=== PATIENT | male | born 1965 | race African-American/Black ===

== ENCOUNTER 2019-07-23 09:17 | Inpatient (IN) ==
[2019-07-23] MEDS ORDERED: amLODIPine 5 MG TABLET PO STA (11:51)
[2019-07-23 12:31] LABS: Basophils % 0.3 % (0.0-0.8); Eosinophils # 0.1 10*3/uL (0.0-0.87); Eosinophils % 1.9 % (0.00-10.9); Hematocrit 43.1 VOL% (42.0-52.0); Hemoglobin 15.1 GM/DL (14.0-18.0); Immature Granulocytes % 0.1 %; Immature Granulocytes Absolute 0.01 #; Lymphocytes # 2.4 10*3/uL (1.4-4.0); Mean Corpuscular Volume 85.7 FL (87-102); Monocytes % 8.1 % (1.7-12.7); Neutrophils % 54.6 % (38.7-73.9); Platelet Count 300 T/CUMM (130-400); Red Blood Count 5.03 MC/CUMM (3.8-5.5); Red Cell Distribution Width 12.9 % (9.3-17.3); White Blood Count 6.8 T/CUMM (4-12)
[2019-07-23 12:47] LABS: Alanine Aminotransferase 24 U/L (16-61); Albumin 3.7 G/DL (3.4-5.0); Alkaline Phosphatase 73 U/L (45-117); Aspartate Amino Transferase 21 U/L (0-37); Bilirubin,Total < 0.39 MG/DL (0.2-1.0); Blood Urea Nitrogen 22 MG/DL (7-18); Calcium 9.2 MG/DL (8.5-10.1); Estimated Glom Filtration Rate 76 ML/MIN; Glucose 97 MG/DL (74-106); Osmolality,Calculated 275.8 MOS/KG (273-304); Total Protein 7.7 G/DL (6.4-8.3)
[2019-07-23] MEDS ORDERED: ONDANSETRON 4 MG/2 ML VIAL IV PRN (12:50)
[2019-07-23] MEDS ORDERED: DOCUSATE SODIUM 100 MG CAPSULE PO PRN (12:50)
[2019-07-23] MEDS ORDERED: DEXTROSE 50% 25 GM/50 ML VIAL IV PRN (12:50)
[2019-07-23] MEDS ORDERED: hydrALAZINE 20 MG/1 ML VIAL IV PRN (12:50)
[2019-07-23] MEDS ORDERED: ACETAMINOPHEN 325 MG TABLET PO PRN (12:50)
[2019-07-23] MEDS ORDERED: GLUCAGON 1 MG VIAL IM PRN (12:50)
[2019-07-23 13:18] LABS: Risk Ratio 3.19; Thyroid Stimulating Hormone 2.37 uIU/ml (0.358-3.74); VLDL CHOLESTEROL 15.4 MG/DL
[2019-07-23] MEDS: SODIUM CHLORIDE 0.9% 1,000 ML IV SCH (18:36)
[2019-07-23] MEDS ORDERED: METOPROLOL TARTRATE 25 MG TABLET PO SCH (21:00)
[2019-07-24] MEDS: SODIUM CHLORIDE 0.9% 1,000 ML IV SCH ×2 (02:09→12:24)
[2019-07-24 06:24] LABS: Basophils % 0.3 % (0.0-0.8); Eosinophils # 0.2 10*3/uL (0.0-0.87); Eosinophils % 2.7 % (0.00-10.9); Hematocrit 42.4 VOL% (42.0-52.0); Hemoglobin 14.8 GM/DL (14.0-18.0); Immature Granulocytes % 0.1 %; Immature Granulocytes Absolute 0.01 #; Lymphocytes # 2.4 10*3/uL (1.4-4.0); Lymphocytes % 34.3 % (21.2-54.2); Mean Corpuscular HGB Conc 34.9 GM/DL (32-36); Mean Corpuscular Volume 85.3 FL (87-102); Neutrophils % 54.6 % (38.7-73.9); Platelet Count 280 T/CUMM (130-400); Red Blood Count 4.97 MC/CUMM (3.8-5.5); Red Cell Distribution Width 12.7 % (9.3-17.3)
[2019-07-24 06:53] LABS: Osmolality,Calculated 279.5 MOS/KG (273-304)
[2019-07-24] MEDS ORDERED: PANTOPRAZOLE 40 MG TABLET PO SCH (09:00)
[2019-07-24] MEDS ORDERED: hydroCHLOROthiazide 25 MG TABLET PO SCH (09:00)
[2019-07-24] MEDS ORDERED: FUROSEMIDE 40 MG TABLET PO SCH (09:00)
[2019-07-24] MEDS ORDERED: LOSARTAN 50 MG TABLET PO SCH (09:00)
[2019-07-24] MEDS ORDERED: carvediloL 12.5 MG TABLET PO SCH ×2 (09:00→21:00)
[2019-07-24] MEDS ORDERED: amLODIPine 5 MG TABLET PO SCH (09:00)
[2019-07-24] MEDS ORDERED: LACTOBACILLUS ACIDOPHILUS/BULGARICUS CAPLET PO SCH (13:00)
[2019-07-24] MEDS ORDERED: SPIRONOLACTONE 25 MG TABLET PO SCH (14:00)
[2019-07-24] MEDS ORDERED: CLINDAMYCIN INJ 900 MG in PREMIX 1 EACH IV SCH (14:00)
[2019-07-24] MEDS ORDERED: ENOXAPARIN 30 MG/0.3 ML SYRINGE SUBCUT SCH (14:00)
[2019-07-24] MEDS ORDERED: POTASSIUM CHLORIDE 20 MEQ TABLET PO ONE (14:14)
[2019-07-24 16:38] VITALS: BP 114/74
[2019-07-24] MEDS ORDERED: ASCORBIC ACID 500 MG TABLET PO SCH (21:00)
[2019-07-24] MEDS ORDERED: ATORVASTATIN 40 MG TABLET PO SCH (21:00)
[2019-07-25] MEDS ORDERED: POTASSIUM CHLORIDE 20 MEQ TABLET PO SCH (09:00)
[2019-07-25] MEDS ORDERED: ASPIRIN EC 81 MG TABLET PO SCH (09:00)
== END 2019-07-24 17:00 | disposition home or self-care (01) | DRG 814 ==
LOC: N.ED 09:17 → N.EDINP 12:49 → N.3E 15:35
PROVIDERS: ADMIT Internal Medicine; ATTEND Internal Medicine

== ENCOUNTER 2019-07-29 14:01 | Observation (INO) ==
[2019-07-29 14:35] LABS: Basophils % 0.6 % (0.0-0.8); Eosinophils # 0.2 10*3/uL (0.0-0.87); Eosinophils % 3.2 % (0.00-10.9); Hematocrit 45.4 VOL% (42.0-52.0); Hemoglobin 16.4 GM/DL (14.0-18.0); Immature Granulocytes % 0.1 %; Immature Granulocytes Absolute 0.01 #; Lymphocytes # 3.1 10*3/uL (1.4-4.0); Lymphocytes % 42.9 % (21.2-54.2); Mean Corpuscular HGB Conc 36.1 GM/DL (32-36); Mean Corpuscular Volume 83.2 FL (87-102); Mean Platelet Volume 9.9 FL (9.6-12.0); Monocytes % 8.7 % (1.7-12.7); Neutrophils % 44.5 % (38.7-73.9); Platelet Count 289 T/CUMM (130-400); Red Blood Count 5.46 MC/CUMM (3.8-5.5); Red Cell Distribution Width 12.7 % (9.3-17.3); White Blood Count 7.1 T/CUMM (4-12)
[2019-07-29 14:55] LABS: Albumin 3.9 G/DL (3.4-5.0); Bilirubin,Total 0.6 MG/DL (0.2-1.0); Calcium 9.6 MG/DL (8.5-10.1); Osmolality,Calculated 276.8 MOS/KG (273-304); Total Protein 8.2 G/DL (6.4-8.3)
[2019-07-29] MEDS ORDERED: ASPIRIN CHEW 81 MG TABLET PO STA (15:06)
[2019-07-29] MEDS ORDERED: ENOXAPARIN 30 MG/0.3 ML SYRINGE SUBCUT STA (15:10)
[2019-07-29] MEDS ORDERED: ENOXAPARIN 100 MG/ML SYRINGE SUBCUT ONE (15:15)
[2019-07-29] MEDS ORDERED: ACETAMINOPHEN 325 MG TABLET PO PRN (16:45)
[2019-07-29] MEDS ORDERED: NITROGLYCERIN SL 0.4 MG TABLET SL PRN (16:45)
[2019-07-29] MEDS: ATORVASTATIN 40 MG TABLET PO SCH (22:16)
[2019-07-29] MEDS: ASCORBIC ACID 500 MG TABLET PO SCH (22:16)
[2019-07-29] MEDS: carvediloL 6.25 MG TABLET PO SCH (22:16)
[2019-07-29] MEDS: PENICILLIN VK 500 MG TABLET PO SCH (22:22)
[2019-07-30] MEDS: ENOXAPARIN 100 MG/ML SYRINGE SUBCUT SCH ×2 (06:17→18:56)
[2019-07-30 07:26] LABS: Albumin 3.6 G/DL (3.4-5.0); Bilirubin,Total 0.8 MG/DL (0.2-1.0); Calcium 9.1 MG/DL (8.5-10.1); Osmolality,Calculated 273.1 MOS/KG (273-304); Risk Ratio 2.68; Total Protein 7.4 G/DL (6.4-8.3)
[2019-07-30] MEDS ORDERED: DIAZEPAM 5 MG TABLET PO ONE (08:41)
[2019-07-30] MEDS ORDERED: diphenhydrAMINE CAP 25 MG CAPSULE PO ONE (08:41)
[2019-07-30] MEDS: LOSARTAN 50 MG TABLET PO SCH (08:58)
[2019-07-30] MEDS: carvediloL 6.25 MG TABLET PO SCH ×2 (08:58→16:26)
[2019-07-30] MEDS: PENICILLIN VK 500 MG TABLET PO SCH ×4 (11:29→20:37)
[2019-07-30] MEDS: LACTOBACILLUS ACIDOPHILUS/BULGARICUS CAPLET PO SCH (16:27)
[2019-07-30] MEDS: POTASSIUM CHLORIDE 20 MEQ TABLET PO SCH (16:28)
[2019-07-30] MEDS: ASCORBIC ACID 500 MG TABLET PO SCH ×2 (16:28→20:37)
[2019-07-30] MEDS: FUROSEMIDE 40 MG TABLET PO SCH (16:28)
[2019-07-30] MEDS: ASPIRIN EC 325 MG TABLET PO SCH (16:28)
[2019-07-30] MEDS: ATORVASTATIN 40 MG TABLET PO SCH (20:37)
[2019-07-31 04:58] LABS: Basophils % 0.6 % (0.0-0.8); Eosinophils # 0.2 10*3/uL (0.0-0.87); Eosinophils % 3.3 % (0.00-10.9); Hematocrit 41.4 VOL% (42.0-52.0); Hemoglobin 14.4 GM/DL (14.0-18.0); Immature Granulocytes % 0.3 %; Immature Granulocytes Absolute 0.02 #; Lymphocytes # 2.8 10*3/uL (1.4-4.0); Lymphocytes % 42.2 % (21.2-54.2); Mean Corpuscular HGB Conc 34.8 GM/DL (32-36); Mean Corpuscular Volume 85.2 FL (87-102); Mean Platelet Volume 9.6 FL (9.6-12.0); Monocytes % 8.3 % (1.7-12.7); Neutrophils % 45.3 % (38.7-73.9); Platelet Count 318 T/CUMM (130-400); Red Blood Count 4.86 MC/CUMM (3.8-5.5); Red Cell Distribution Width 12.6 % (9.3-17.3); White Blood Count 6.7 T/CUMM (4-12)
[2019-07-31 05:13] LABS: Calcium 8.8 MG/DL (8.5-10.1)
[2019-07-31] MEDS: ENOXAPARIN 100 MG/ML SYRINGE SUBCUT SCH (06:46)
[2019-07-31 07:36] LABS: Barbiturates Screen,Urine Negative (Negative); Benzodiazepines Screen,Urine Positive (Negative); Cannabinoid Screen,Urine Positive (Negative); Opiate Screen,Urine Negative (Negative); Phencyclidine Screen,Urine Negative (Negative)
[2019-07-31] MEDS ORDERED: DIAZEPAM 5 MG TABLET PO ONE (07:42)
[2019-07-31] MEDS ORDERED: diphenhydrAMINE CAP 25 MG CAPSULE PO ONE (07:42)
[2019-07-31] MEDS ORDERED: MAGNESIUM SULF RIDER 2 GM in PREMIX 1 EACH IV PRN (07:42)
[2019-07-31] MEDS ORDERED: POTASSIUM CHLORIDE RIDER 10 MEQ in PREMIX 1 EACH IV PRN (07:42)
[2019-07-31] MEDS: LOSARTAN 50 MG TABLET PO SCH (07:59)
[2019-07-31] MEDS: carvediloL 6.25 MG TABLET PO SCH ×2 (07:59→16:24)
[2019-07-31] MEDS: PENICILLIN VK 500 MG TABLET PO SCH ×4 (09:36→21:00)
[2019-07-31] MEDS ORDERED: LIDOCAINE 1% 20 ML VIAL ONE (11:42)
[2019-07-31] MEDS ORDERED: MIDAZOLAM 2 MG/2 ML VIAL ONE (11:45)
[2019-07-31] MEDS ORDERED: HYDROmorphone 2 MG/1 ML VIAL ONE (11:45)
[2019-07-31] MEDS: POTASSIUM CHLORIDE 20 MEQ TABLET PO SCH (14:01)
[2019-07-31] MEDS: LACTOBACILLUS ACIDOPHILUS/BULGARICUS CAPLET PO SCH (14:01)
[2019-07-31] MEDS: SACUBITRIL/VALSARTAN 49-51 MG TABLET PO SCH ×2 (14:01→21:00)
[2019-07-31] MEDS: FUROSEMIDE 40 MG TABLET PO SCH (14:02)
[2019-07-31] MEDS: ASCORBIC ACID 500 MG TABLET PO SCH ×2 (14:02→21:00)
[2019-07-31] MEDS: ASPIRIN EC 325 MG TABLET PO SCH (14:02)
[2019-07-31] MEDS: ATORVASTATIN 40 MG TABLET PO SCH (21:00)
[2019-08-01 07:16] LABS: Basophils % 0.4 % (0.0-0.8); Eosinophils # 0.2 10*3/uL (0.0-0.87); Eosinophils % 2.6 % (0.00-10.9); Hematocrit 40.7 VOL% (42.0-52.0); Hemoglobin 14.6 GM/DL (14.0-18.0); Immature Granulocytes % 0.1 %; Immature Granulocytes Absolute 0.01 #; Lymphocytes # 2.3 10*3/uL (1.4-4.0); Lymphocytes % 33.7 % (21.2-54.2); Mean Corpuscular HGB Conc 35.9 GM/DL (32-36); Mean Corpuscular Volume 83.1 FL (87-102); Monocytes % 10.4 % (1.7-12.7); Neutrophils % 52.8 % (38.7-73.9); Platelet Count 289 T/CUMM (130-400); Red Cell Distribution Width 12.6 % (9.3-17.3); White Blood Count 6.9 T/CUMM (4-12)
[2019-08-01 07:33] LABS: Calcium 8.9 MG/DL (8.5-10.1); Osmolality,Calculated 272.1 MOS/KG (273-304)
[2019-08-01] MEDS: SACUBITRIL/VALSARTAN 49-51 MG TABLET PO SCH (08:39)
[2019-08-01] MEDS: LACTOBACILLUS ACIDOPHILUS/BULGARICUS CAPLET PO SCH (08:39)
[2019-08-01] MEDS: PENICILLIN VK 500 MG TABLET PO SCH (08:40)
[2019-08-01] MEDS: POTASSIUM CHLORIDE 20 MEQ TABLET PO SCH (08:40)
[2019-08-01] MEDS: ASCORBIC ACID 500 MG TABLET PO SCH (08:40)
[2019-08-01] MEDS: carvediloL 6.25 MG TABLET PO SCH (08:40)
[2019-08-01] MEDS: FUROSEMIDE 40 MG TABLET PO SCH (08:40)
[2019-08-01] MEDS: ASPIRIN EC 325 MG TABLET PO SCH (08:41)
[2019-08-01 11:44] VITALS: BP 125/89
== END 2019-08-01 11:50 | disposition home or self-care (01) ==
LOC: N.ED 14:01 → N.EDINP 14:01 → SUATTDRO 16:45 → N.3E 18:26
PROVIDERS: ADMIT Internal Medicine; ATTEND Hospitalist